=== PATIENT | male | born 1955 | race African-American/Black ===

== ENCOUNTER 2016-11-03 00:50 | Emergency (ER) | payer OTHER, MEDICAID ==
[~2016-11-03] VITALS: Ht 182.9 cm; Wt 93.0 kg
[2016-11-03 00:54] VITALS: Ht 182.9 cm; Wt 93.0 kg
[2016-11-03 02:41] LABS: ADD UMIC NO; UR ASCORBIC ACID NEGATIVE (NEGATIVE); UR BILIRUBIN (Dip) NEGATIVE (NEGATIVE); UR BLOOD (Dip) NEGATIVE (NEGATIVE); UR CLARITY CLEAR (CLEAR); UR COLOR YELLOW (YELLOW); UR GLUCOSE (Dip) NEGATIVE (NEGATIVE); UR KETONES (Dip) NEGATIVE (NEGATIVE); UR LEUKOCYTE ESTERASE (Dip) NEGATIVE Leu/ul (NEGATIVE); UR NITRITE (Dip) NEGATIVE (NEGATIVE); UR SPECIFIC GRAVITY (Dip) 1.021 (1.003-1.030); UR TOTAL PROTEIN (Dip) NEGATIVE (NEGATIVE); UR UROBILINOGEN (Dip) 1+ mg/dL (NEGATIVE)
--- NOTE | 2016-11-03 03:08 | PSY ---
Date/Time of Note Date/Time of Note DATE: 11/03/16 TIME: 02:57 Psychiatric Subjective Eval Consent Pt consented to telemedicine: Yes Subjective Evaluation Patient location: emergency Chief Complaint: SUICIDAL IDEATION BY THROWING HIMSELF AGAINST THE TRAFFIC Allergies: Coded Allergies: No Known Allergy (Unverified , 11/03/16) Psychiatric Objective Eval Mental Status Examination: Laboratory Results Laboratory Tests Test 11/03/16 01:38 Urine Color YELLOW Urine Clarity CLEAR Urine pH 5.0 Urine Specific [place] 1.021 Urine Ketones NEGATIVEmg/dL Urine Nitrite NEGATIVEmg/dL Urine Bilirubin NEGATIVEmg/dL Urine Urobilinogen 1+mg/dL Urine Leukocyte Esterase NEGATIVELeu/ul Urine Hemoglobin NEGATIVEmg/dL Urine Glucose NEGATIVEmg/dL Urine Total Protein NEGATIVEmg/dl Assessment Additional comments: IDENTIFYING INFORMATION: 60 year old -[place] Male patient who is currently located at the hospital and for whom psychiatric consultation was requested. SOURCES OF INFORMATION: The patient who appears to be reliable and the medical records; the nursing staff. CHIEF COMPLAINT: "very depressed". HISTORY OF PRESENT ILLNESS: The patient was interviewed via telemedicine in the presence of and under the supervision of nursing staff of the hospital. The consent to conducting this interview via telemedicine was obtained by the nursing staff at the hospital. TATIANNA Dawn reports that the patient presents with depression, SI with plan to run into traffic. Is not on a hold. The patient reports that he has been depressed persistently lately. Admits to SI with plan to throw himself into traffic. Admits to anhedonia, insomnia, fatigue, AH telling him to hurt himself. Reports that somebody is watching him but he does not know who that is. Denies having low appetite. The patient reports drinking 4 standard drinks per day. Last drink was today. The patient denies having a history of serious alcohol withdrawal, with symptoms including tremors, seizures, delirium tremens, visual hallucinations, and denies having alcohol withdrawal related hospitalizations. The patient reports using MJ daily. Last use was yesterday. The patient denies using any other substances. In terms of past psychiatric history, the patient reports having a history of past psychiatric hospitalizations. The patient reports having a history of past suicide attempt by cutting his wrists. PAST MEDICAL HISTORY: HTN, DM. CURRENT MEDICATIONS: lisinopril, insulin, remeron, risperdal (ran out of meds a few weeks ago). ALLERGIES TO MEDICATIONS: NKDA. SOCIAL HISTORY: homeless, single, no children; not employed. LABORATORY TESTS: pending. REVIEW OF SYSTEMS: Constitutional (e.g., fever, weight loss): negative; Eyes, Ears, Nose, Mouth, Throat: negative; Cardiovascular: negative; Respiratory: negative; Gastrointestinal: negative; Genitourinary: negative; Musculoskeletal: negative; Integumentary (skin and/or breast): negative; Neurological: negative; Psychiatric: as per HPI; Endocrine: negative; Hematologic/Lymphatic: negative; Allergic/Immunologic: negative. MENTAL STATUS EXAMINATION: General Appearance and Behavior: Calm, cooperative with the interview, pleasant with the current interviewer, makes poor eye contact, poorly groomed, no abnormal movements noted. Speech: Regular rate, regular rhythm, normal latency, normal volume, somewhat decreased amount. Flow of thought: sequential, logical, goal-directed. Content of thought: positive for auditory hallucinations, no visual hallucinations, positive for mild paranoid delusions, positive for suicidal ideation; no homicidal ideation. Mood: "depressed". Affect: dysthymic, dysphoric, not reactive. Attention: normal based on the interview. Insight: fair. Judgment: poor. Memory: normal based on the interview. Sensorium: alert and oriented to person, place and date. ASSESSMENT: The patient's presentation and history are consistent with the diagnosis of unspecified psychotic disorder, unspecified depressive disorder, cannabis use disorder, alcohol use disorder. Pt presents with depression and psychosis in the context of medication noncompliance, cannabis and alcohol use. Lutz I: unspecified psychotic disorder, unspecified depressive disorder, cannabis use disorder, alcohol use disorder. Lutz II: Deferred. Lutz III: see PMH. Lutz IV: social stressors. Lutz V: GAF: 10. PLAN: - Medication management: Would start Risperdal 0.5 mg by mouth BID, remeron 7.5 mg po qhs. Would recommend starting alcohol withdrawal protocol per CIWA. Would also consider administering thiamine, folic acid, multivitamin. Risks, benefits, alternatives discussed in detail and the patient provided informed consent to proceed. Would start haloperidol 5 mg IM PRN severe agitation q4 hours. Would start diphenhydramine 50 mg IM PRN severe agitation q4 hours. Would start lorazepam 2 mg IM PRN severe agitation q4 hours Will defer to the inpatient psychiatry team for other medication changes. - Labs: Please check CBC, CMP, alcohol level, UDS. - Psychotherapy: Provided supportive psychotherapy and psychoeducation. - Disposition: Would recommend involuntary admission to the inpatient psychiatric unit given the severity of the patient's psychiatric condition and the fact that the patient is an imminent danger to self and/or others so long as the patient has been cleared medically for admission to psychiatry. Inpatient psychiatric admission is at this time the least restrictive environment where the patient can receive the psychiatric care that is needed. Would place on suicide precautions. The patient fulfills criteria for being placed on involuntary hold due to being a danger to self. Of note, the patient is in agreement with the above plan. Discussed about the above plan with Dr. Matthew. LINDA MEJIA MD Nov 03, 2016 03:08
[2016-11-03 03:14] LABS: BASOPHIL # 0.1 10^3/ul (0.0-0.1); BASOPHILS % 0.7 % (0.0-2.0); EOSINOPHILS # 0.1 10^3/ul (0.0-0.5); EOSINOPHILS % 0.8 % (0.0-7.0); HEMATOCRIT 41.9 % (42.0-52.0); HEMOGLOBIN 14.2 g/dl (14.0-18.0); LYMPHOCYTES # 1.9 10^3/ul (0.8-2.9); LYMPHOCYTES % 22.8 % (15.0-51.0); MEAN CORPUSCULAR HEMOGLOBIN 30.2 pg (29.0-33.0); MEAN CORPUSCULAR HGB CONC 33.9 g/dl (32.0-37.0); MEAN CORPUSCULAR VOLUME 89.1 fl (82.0-101.0); MEAN PLATELET VOLUME 9.5 fl (7.4-10.4); MONOCYTE # 0.5 10^3/ul (0.3-0.9); MONOCYTES % 5.5 % (0.0-11.0); NEUTROPHIL # 5.6 10^3/ul (1.6-7.5); NEUTROPHILS % 68.3 % (39.0-77.0); PLATELET COUNT 213 10^3/UL (140-415); RED CELL DISTRIBUTION WIDTH 12.7 % (11.5-14.5); WHITE BLOOD COUNT 8.3 10^3/ul (4.8-10.8)
--- NOTE | 2016-11-03 03:22 | ERA ---
ER Documentation Chief Complaint Date/Time DATE: 11/03/16 TIME: 03:22 Chief Complaint SUICIDAL IDEATION BY THROWING HIMSELF AGAINST THE TRAFFIC HPI 60-year-old male says he is feeling suicidal and wants to enrollment counselor with her himself against traffic. History of previous psychiatric admissions. ROS All systems reviewed and are negative except as per history of present illness. Allergies Allergies: Coded Allergies: No Known Allergy (Unverified , 11/03/16) Physical Exam Vitals Vital Signs Date Time Temp Pulse Resp B/P Pulse Ox O2 Delivery O2 Flow Rate FiO2 11/03/16 00:54 98.2 94 20 145/83 98 Physical Exam Const: [] Head: Atraumatic Eyes: Normal Conjunctiva ENT: Normal External Ears, Nose and Mouth. Neck: Full range of motion..~ No meningismus. Resp: Clear to auscultation bilaterally Cardio: Regular rate and rhythm, no murmurs Abd: Soft, non tender, non distended. Normal bowel sounds Skin: No petechiae or rashes Back: No midline or flank tenderness Ext: No cyanosis, or edema Neur: Awake and alert Psych: Normal Mood and Affect Result Diagram: 11/03/16 0200 Results 24 hrs Laboratory Tests Test 11/03/16 01:38 11/03/16 02:00 Urine Color YELLOW Urine Clarity CLEAR Urine pH 5.0 Urine Specific [place] 1.021 Urine Ketones NEGATIVEmg/dL Urine Nitrite NEGATIVEmg/dL Urine Bilirubin NEGATIVEmg/dL Urine Urobilinogen 1+mg/dL Urine Leukocyte Esterase NEGATIVELeu/ul Urine Hemoglobin NEGATIVEmg/dL Urine Glucose NEGATIVEmg/dL Urine Total Protein NEGATIVEmg/dl White Blood Count 8.310^3/ul Red Blood Count 4.7010^6/ul Hemoglobin 14.2g/dl Hematocrit 41.9% Mean Corpuscular Volume 89.1fl Mean Corpuscular Hemoglobin 30.2pg Mean Corpuscular Hemoglobin Concent 33.9g/dl Red Cell Distribution Width 12.7% Platelet Count 83720^3/UL Mean Platelet Volume 9.5fl Neutrophils % 68.3% Lymphocytes % 22.8% Monocytes % 5.5% Eosinophils % 0.8% Basophils % 0.7% Nucleated Red Blood Cells % 0.0/100WBC Neutrophils # 5.610^3/ul Lymphocytes # 1.910^3/ul Monocytes # 0.510^3/ul Eosinophils # 0.110^3/ul Basophils # 0.110^3/ul Nucleated Red Blood Cells # 0.010^3/ul Current Medications Medications (Trade) Dose Ordered Sig/Andra Route PRN Reason Start Time Stop Time Status Last Admin Dose Admin Risperidone (Risperdal) 0.25 mg ONCE ONCE PO 11/03/16 03:30 11/03/16 03:31 Mirtazapine (Remeron) 15 mg ONCE ONCE PO 11/03/16 03:30 11/03/16 03:31 Procedures/MDM Patient's behavioral symptoms have stabilized while in the department. Patient is medically cleared and appropriate for psychiatric evaluation and work up. No e/o neurologic, toxic, infectious, or metabolic cause. Placed on 5150 hold. Pending U placement Departure Diagnosis: Primary Impression: Suicidal ideation Condition: Serious KAILEY ABURTO Nov 03, 2016 03:22
[2016-11-03] MEDS ORDERED: MIRTAZAPINE 15 MG TAB PO ONE (03:30)
[2016-11-03] MEDS ORDERED: RISPERIDONE 0.25 MG TAB PO ONE (03:30)
[2016-11-03 03:44] LABS: BARBITURATES Negative (NEGATIVE); BENZODIAZEPINES Negative (NEGATIVE); CANNABINOIDS Positive (NEGATIVE)
[2016-11-03 03:45] LABS: COCAINE Negative (NEGATIVE); OPIATES Negative (NEGATIVE)
[2016-11-03 03:55] LABS: ALANINE AMINOTRANSFERASE 33 IU/L (13-69); ALBUMIN 4.3 g/dl (3.3-4.9); ALBUMIN/GLOBULIN RATIO 1.53; ALKALINE PHOSPHATASE 59 IU/L (42-121); ANION GAP 22 (8-16); ASPARTATE AMINO TRANSFERASE 26 IU/L (15-46); BILIRUBIN,INDIRECT 0.4 mg/dl (0-1.1); BILIRUBIN,TOTAL 0.4 mg/dl (0.2-1.3); BLOOD UREA NITROGEN 16 mg/dl (7-20); CARBON DIOXIDE 22 mmol/L (21-31); CHLORIDE 102 mmol/L (97-110); CREATININE 0.85 mg/dl (0.61-1.24); GLUCOSE 84 mg/dl (70-220); POTASSIUM 3.8 mmol/L (3.5-5.1); SODIUM 142 mmol/L (135-144); TOTAL PROTEIN 7.1 g/dl (6.1-8.1)
[2016-11-03 04:39] LABS: ACETAMINOPHEN < 10.0 ug/ml (10.0-30.0); SALICYLATE < 1.0 mg/dl (5.0-30.0)
[2016-11-03] MEDS ORDERED: ALBUTEROL 0.083% (NEB) 2.5 MG/3 ML AMP HHN STA (14:20)
[2016-11-03] MEDS ORDERED: ALBUTEROL 0.083% (NEB) 2.5 MG/3 ML AMP ONE (14:23)
[2016-11-03] MEDS ORDERED: IPRATROPIUM (NEB) 0.5 MG/2.5 ML AMP ONE ×2 (14:23→14:24)
[2016-11-03] MEDS ORDERED: MIRT15TA PO (14:23)
[2016-11-03] MEDS ORDERED: RISP2TAB93 PO (14:24)
[2016-11-03] MEDS ORDERED: SERT100T PO (14:27)
[2016-11-03] MEDS ORDERED: LISI20TA11 PO (14:28)
[2016-11-03] MEDS ORDERED: ASPI81TA3 PO (14:28)
[2016-11-03] MEDS ORDERED: ESOM40CA PO (14:29)
[2016-11-03] MEDS ORDERED: IPRATROPIUM (NEB) 0.5 MG/2.5 ML AMP HHN ONE (14:30)
[2016-11-03 18:30] VITALS: BP 138/79; PULSE 90; RESP 19; TEMP 98.1
[2016-11-03] MEDS: HALOPERIDOL 5 MG INJ IM ONE ×2 (21:55→22:37)
== END 2016-11-04 00:06 ==
LOC: E/R 00:50
DX: R45.851 Suicidal ideations (principal); R40.2252 Coma scale, best verbal response, oriented, at arrival to emergency department
CPT/HCPCS: 80053; 80306; 80307; 81003; 85025; 94664; J1630; 96372

== ENCOUNTER 2017-09-05 21:05 | Emergency (ER) | END 2017-09-06 00:54 | disposition home or self-care (01) ==